=== PATIENT | female | born 1975 | race Caucasian/White ===

== ENCOUNTER 2022-04-16 13:11 | Outpatient (CLI) | payer MEDICAID, SELFPAY | END 2022-04-16 13:12 | disposition home or self-care (01) | PROVIDERS: Visit Provider Emergency Medicine Emergency Medical Services | DX: S89.91XA Unspecified injury of right lower leg, initial encounter (principal); S69.92XA Unspecified injury of left wrist, hand and finger(s), initial encounter; W10.9XXA Fall (on) (from) unspecified stairs and steps, initial encounter; Y92.008 Other place in unspecified non-institutional (private) residence as the place of occurrence of the external cause | CPT/HCPCS: A0425; A0429 ==

== ENCOUNTER 2022-04-16 14:24 | Emergency (ER) | payer MEDICAID, SELFPAY ==
[2022-04-16] VITALS (8 sets, daily range): BP systolic 110–126; BP diastolic 40–82; PULSE 78–85; RESP 18–20; TEMP 37.4; O2SAT 97–98; BMI 25.8
--- NOTE | 2022-04-16 14:33 | CRLHL7_ITS ---
For Patients: As a result of the Cures Act, medical imaging exams and procedure reports are released immediately into your electronic medical record. You may view this report before your referring provider. If you have questions, please contact your health care provider. INDICATION: Trauma. TECHNIQUE: CT cervical spine without contrast. COMPARISON: None. FINDINGS: Vertebrae: Alignment is normal. There are no fractures or suspicious bony lesions. Discs and facet joints: Degenerative disc spondylosis present at C5-6. Disc spaces and facets are otherwise within normal limits. Extraspinal findings: Prevertebral soft tissues, visualized airway, and visualized lungs are unremarkable. IMPRESSION: No sign of acute injury in the cervical spine. Please note that all CT scans at this facility use dose modulation, iterative reconstruction, and/or weight-based dosing when appropriate to reduce radiation dose to as low as reasonably achievable. Dictated by Luis Jasso MD @ 04/16/2022 3:27:56 PM (Electronically Signed)
--- NOTE | 2022-04-16 14:33 | CRLHL7_ITS ---
For Patients: As a result of the Century Cures Act, medical imaging exams and procedure reports are released immediately into your electronic medical record. You may view this report before your referring provider. If you have questions, please contact your health care provider. INDICATION: Trauma. TECHNIQUE: CT head without contrast. COMPARISON: None. FINDINGS: CSF spaces: Within normal limits for age. Brain parenchyma and extra-axial spaces: The pelaez-white differentiation is normal. No sign of mass, hemorrhage, or midline shift. No extra-axial fluid collection. Skull base and calvarium: The visualized paranasal sinuses and mastoid air cells demonstrate no acute or significant findings. The visualized orbits are grossly unremarkable. No skull fractures. IMPRESSION: Unremarkable noncontrast head CT. Please note that all CT scans at this facility use dose modulation, iterative reconstruction, and/or weight-based dosing when appropriate to reduce radiation dose to as low as reasonably achievable. Dictated by Luis Jasso MD @ 04/16/2022 3:21:19 PM (Electronically Signed)
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
[2022-04-16 14:52] LABS: Basophils Absolute Auto 0.05 K/uL (0.00-0.30); Basophils Percent Auto 0.5 % (0.0-3.0); Eosinophils Absolute Auto 0.01 K/uL (0.00-0.50); Eosinophils Percent Auto 0.1 % (0.0-7.0); Immature Granulocytes Abs Auto 0.02 K/uL (0.00-0.30); Lymphocytes Absolute Auto 2.51 K/uL (0.90-2.90); Lymphocytes Percent Auto 26.1 % (20-44); Mean Corpuscular HGB Conc 35 gm/dL (32-36); Mean Corpuscular Hemoglobin 30 pg (26-34); Mean Corpuscular Volume 87 fL (80-100); Monocytes Percent Auto 9.3 % (0.0-11.0); Neutrophils Absolute Auto 6.14 K/uL (1.7-7.0); Neutrophils Percent Auto 63.8 % (42.0-72.0); Platelet Count* 292 K/uL (140-440); Red Blood Count 4.61 m/uL (4.00-5.20); White Blood Count* 9.62 K/uL (4.50-11.00)
[2022-04-16 14:57] LABS: Slide Review Reflex No
--- NOTE | 2022-04-16 15:06 | ED.NURSE ---
Pt to and back from CT
[2022-04-16 15:41] LABS: Chloride* 103 mmol/L (96-114)
[2022-04-16 15:42] LABS: Albumin* 4.6 g/dL (3.3-5.0); Potassium* 3.5 mmol/L (3.6-5.1); Sodium* 144 mmol/L (135-149)
[2022-04-16 15:45] LABS: Alkaline Phosphatase* 119 U/L (40-150); Aspartate Amino Transferase* 97 U/L (12-35); Bilirubin Direct* 0.2 mg/dL (0.0-0.5); Bilirubin Total* 0.4 mg/dL (0.1-1.5); Blood Urea Nitrogen* 12 mg/dL (5-24); Carbon Dioxide* 25 mmol/L (20-32); Creatinine* 0.6 mg/dL (0.5-1.5); Estimated Glomerular Filt Rate 113 ml/min; Glucose* 131 mg/dL (60-115)
[2022-04-16 15:46] LABS: Alanine Aminotransferase* 33 U/L (4-35); Calcium* 8.9 mg/dL (8.4-10.6)
[2022-04-16 15:58] LABS: Ethanol* 0.33 % (0.01-0.03)
== END 2022-04-16 16:24 | disposition home or self-care (01) ==
LOC: ED 16:12
PROVIDERS: Emergency Provider Emergency Medicine Emergency Medical Services
DX: S81.011A Laceration without foreign body, right knee, initial encounter (principal); W10.9XXA Fall (on) (from) unspecified stairs and steps, initial encounter; R55 Syncope and collapse
CPT/HCPCS: 12004; 36415; 70450; 72125; 80048; 80076; 82077; 85025; 99285; 99291; G0390

== ENCOUNTER 2022-04-22 18:05 | Emergency (ER) | payer MEDICAID, SELFPAY ==
[2022-04-22 18:20] VITALS: BP 134/92; PULSE 75; RESP 18; TEMP 36.8; O2SAT 100; BMI 27.4
--- NOTE | 2022-04-22 18:50 | ED.GENADULT ---
HPI - General Adult General Time Seen by Provider: 18:50 Date Seen: 04/22/22 Chief complaint: Skin/Abscess/Foreign Body Stated complaint: Infected stitches Time Seen by Provider: 04/22/22 18:39 Source: patient and RN notes reviewed Mode of arrival: ambulatory Limitations: no limitations History of Present Illness HPI narrative: Patient is ambulatory into the ER with concern of an infected laceration. The wound has gotten a little bit more red and swollen, patient can not say that it is more painful. What became concerning is that it started draining. Unclear as to how long it has been draining. She denies any fevers or chills. She denies any night sweats. This wound overlying her right knee was closed here in our ER on April 16. It was a long laceration, have read the ED note. Sounds as if it was copiously irrigated but the wound was probably about 14 hours old. It was gaping and was opening with movement per her report. Reviewed with her that if it had not been closed, would of been very difficult for this to heal. She also notes that she is noticed bruising and swelling at the end of her left 5th finger. She did not noted initially when she was in the ER for evaluation but has subsequently noted it. She has not had it evaluated or x-rayed. She denies any history of MRSA or any knowledge of any difficult to treat infections before. She has no pain within the knee itself with ambulation. The discomfort of the wound is superficial. Related Data Home Medications Medication Instructions Recorded Confirmed cyanocobalamin (vitamin B-12) 1,000 mcg subcut Q2W 04/16/22 04/16/22 1,000 mcg/mL injection solution ferrous sulfate 325 mg (65 mg 325 mg PO DAILY 04/16/22 04/16/22 iron) tablet (FeroSul) folic acid 1 mg tablet 1 mg PO DAILY 04/16/22 04/16/22 omeprazole 20 mg capsule,delayed 20 mg PO DAILY 04/16/22 04/16/22 release sertraline 100 mg tablet 100 mg PO Q24H 04/16/22 04/16/22 Allergies Allergy/AdvReac Type Severity Reaction Status Date / Time No Known Drug Allergies Allergy Verified 04/16/22 14:40 Review of Systems Status of ROS: Reports: 6 or more systems reviewed and unremarkable except as noted in History and below PFSH PFSH Social History Smoking Status: Never smoker Do you use any of these nicotine containing products: None Second hand tobacco smoke exposure: No How often do you have a drink containing alcohol: 2-4 times a month How many standard drinks containing alcohol do you have on a typical day: 10 or more How often do you have six or more drinks on one occasion: Weekly AUDIT-C Alcohol total score: 9 Non-prescribed substance use: denies use Exam Const: Vital Signs, click to edit/add: Vital Signs - 24 hr 04/22/22 18:20 04/22/22 20:05 04/22/22 19:40 Temperature 98.2 F Pulse Rate [Right Pulse Oximeter] 75 75 Respiratory Rate 18 Blood Pressure [Ri ght Upper Arm] 134/92 H 120/89 129/80 Pulse Oximetry 100 100 Oxygen Delivery Me thod Room Air Room Air Documenting provider has reviewed patient's vital signs: yes Common normals: no apparent distress, average body habitus, oriented x3, no limitations, healthy appearing, alert and well nourished HENMT: Common normals: normocephalic, head/scalp atraumatic, hearing grossly normal bilaterally and external ears normal Head and scalp: normocephalic and atraumatic External ear: external ears normal Eye: Common normals: PERRL, EOMs intact bilaterally, conjunctivae normal and no scleral icterus Conjunctiva: conjunctiva(e) normal Pupil: PERRL Neck & C-Spine: Common normals: full ROM, no lymphadenopathy, supple, no meningeal signs, no JVD and thyroid normal Thyroid: thyroid normal Resp: Common normals: normal respiratory effort, no retractions, no use of accessory muscles and clear to auscultation bilaterally Auscultation: clear to auscultation bilaterally Cardio: Common normals: no JVD, regular rate, regular rhythm, S1 normal heart sound, S2 normal heart sound, no gallops, no clicks and no murmurs Rate: regular rate Rhythm: regular rhythm Heart sounds: S1 normal and S2 normal Extremity: Other: She has a horizontal laceration below the joint line overlying the inferior right knee area. There is some erythema and induration. Along the medial edge of this wound I can express a little serosanguineous cloudy looking fluid. I cannot palpate any underlying collections of fluid or fluctuant areas. I was able to milk just a small amount out. I did culture this. I will be removing 1 suture to allow for better drainage but will leave the rest intact so that this wound has a chance of healing primarily. Her left 5th pinky finger has ecchymosis and swelling distally, has normal sensation, may have a little angulation distally but she does seem to be able to fully flex and extend. She states it is painful in the area of the bruising and it is quite swollen distally. Neuro: Common normals: oriented x3 Sensorium/orientation: alert Meningeal signs: no meningeal signs Course Course Hospital Course: Patient will have an IV established, will get 2 g Ancef. Will get a baseline CBC and C reactive protein in case this needs to be followed for wound management. I will remove 1 suture to allow all a tract for drainage. Culture will be ordered. We will x-ray her left 5th finger. She is in agreement with this plan. Reevaluation(s) Reevaluation #1: Have reviewed with patient and showed her pictures of her finger fracture. I did place a splint on this finger. Reviewed with her that it needs to be splinted in full extension. I removed 1 stitch at this time to try to get small area of opening along the suture line. There is a little drop of slightly cloudy serosanguineous drainage. I could not get further drainage out of this wound this small area did mildly open up, reviewed with her that I fear the full wound would open up before we took all the stitches out. She is getting her Ancef infused. I have reviewed with her that I think she should follow up with 1 of our general surgeons to help actively manage this wound and decide on when stitches should be taken out. Time: 20:22 Consultations Consultation #1: Just completed discussion of the distal comminuted phalanx fracture of this patient's finger with Orthopedics. Spoke with Fabienne ammonia refrigeration technician. We will splint this in full extension, have her follow up with Orthopedics. Reviewed that this is a week old. Time: 20:03 Vital Signs Vital signs: Initial Vital Signs Temperature 98.2 F 04/22/22 18:20 Temperature Source Temporal Artery Scan 04/22/22 18:20 Pulse Rate 75 04/22/22 18:20 Respiratory Rate 18 04/22/22 18:20 Blood Pressure 134/92 H 04/22/22 18:20 Blood Pressure Mean 106 04/22/22 18:20 Blood Pressure Position Sitting 04/22/22 18:20 Pulse Oximetry 100 04/22/22 18:20 Oxygen Delivery Method 04/22/22 18:20 Vital Signs Temperature 98.2 F 04/22/22 18:20 Pulse Rate 75 04/22/22 18:20 Respiratory Rate 18 04/22/22 18:20 Blood Pressure 134/92 H 04/22/22 18:20 Pulse Oximetry 100 04/22/22 18:20 Oxygen Delivery Method 04/22/22 18:20 Temperature 98.2 F 04/22/22 18:20 Pulse Rate 72 04/22/22 20:30 Respiratory Rate 18 04/22/22 18:20 Blood Pressure 122/66 04/22/22 20:30 Pulse Oximetry 100 04/22/22 20:30 Oxygen Delivery Method 04/22/22 20:30 Medical Decision Making Lab Data Lab results reviewed: Yes I reviewed the patient's lab results Labs: Lab Results 04/22/22 04/22/22 Range/Units 19:10 19:10 WBC 8.21 (4.50-11.00) K/uL RBC 4.19 (4.00-5.20) m/uL Hgb 12.6 (12.0-16.0) gm/dL Hct 37.9 (33.0-51.0) % MCV 91 (80-100) fL MCH 30 (26-34) pg MCHC 33 (32-36) gm/dL RDW Coeff of Dmitri 12.1 (11.5-15.5) % Plt Count 278 (140-440) K/uL Neut % (Auto) 65.2 (42.0-72.0) % Lymph % (Auto) 23.0 (20-44) % [place] % (Auto) 9.9 (0.0-11.0) % Eos % (Auto) 0.7 (0.0-7.0) % Baso % (Auto) 0.6 (0.0-3.0) % Neut # (Auto) 5.35 (1.7-7.0) K/uL Lymph # (Auto) 1.89 (0.90-2.90) K/uL [place] # (Auto) 0.80 (0.00-0.90) K/UL Eos # (Auto) 0.06 (0.00-0.50) K/uL Baso # (Auto) 0.05 (0.00-0.30) K/uL Abs Immat Gran (auto) 0.05 (0.00-0.30) K/uL C-Reactive Protein 1.7 H (0.5-1.0) mg/dL Imaging Data Finger x-ray left 5th: Attestation: I have reviewed the pertinent imaging results. Radiologist's impression: Patient: AD STEWART Facility:?[facility] Patient ID:?[id number] Site Patient ID:?[id number]. Site :?[id number] Study:?XRay Extremity Left 5TH FINGER DIGIT-04/22/2022 7:28:49 PM Ordering Physician:?Luke Walker Final Report: Indication: Pain. Fall. Technique: Three views left 5th finger. Comparison: None. Findings: There is a comminuted displaced intra-articular fracture in the base of the 5th distal phalanx. There is no other fracture is seen or dislocation. Impression: Comminuted displaced intra-articular fracture base of the 5th distal phalanx Dictated by Cal Guardado MD @ 04/22/2022 7:53:47 PM (Electronic Signature) Critical Care Time Critical Care Time Critical Care Time: No Discharge Plan Discharge Clinical Impression: Infected laceration, Fracture of distal phalanx of finger of left hand Condition: Stable Instructions: Finger Fracture (ED), Wound Infection (ED) Additional Instructions: For the infected laceration, use bandages as needed for drainage. Do recommend elevating and using warm packs on this. Start oral antibiotic in the morning and take as prescribed. Contact the surgery clinic to get scheduled for a wound followup and have them manage this wound from here on out, phone number is [phone]. If you feel this is worsening, such as increasing redness, swelling, associated fever, difficulty walking, do need to be re-evaluated. For your finger fracture, need to leave the splint on and keep the finger splinted in full extension, meaning is straight. Call the orthopedic clinic at [phone]. Prescriptions: No Action sertraline 100 mg tablet 100 mg PO Q24H Label Comments: TAKE ONE TABLET BY MOUTH ONE TIME DAILY omeprazole 20 mg capsule,delayed release(DR/EC) 20 mg PO DAILY Label Comments: TAKE ONE CAPSULE BY MOUTH ONE TIME DAILY folic acid 1 mg tablet 1 mg PO DAILY Label Comments: TAKE ONE TABLET BY MOUTH ONE TIME DAILY ferrous sulfate [FeroSul] 325 mg (65 mg iron) tablet 325 mg PO DAILY Label Comments: TAKE ONE TABLET BY MOUTH ONE TIME DAILY WITH A MEAL. cyanocobalamin (vitamin B-12) 1,000 mcg/mL solution 1,000 mcg subcut Q2W Label Comments: Inject 1 mL (1,000 mcg total) under the skin every 14 days Follow Up/Referrals: Provider,Not a Local [Primary Care Provider] - Stand Alone Forms: [facility] Info Instructions
--- NOTE | 2022-04-22 18:57 | CRLHL7_ITS ---
For Patients: As a result of the Cures Act, medical imaging exams and procedure reports are released immediately into your electronic medical record. You may view this report before your referring provider. If you have questions, please contact your health care provider. Indication: Pain. Fall. Technique: Three views left 5th finger. Comparison: None. Findings: There is a comminuted displaced intra-articular fracture in the base of the 5th distal phalanx. There is no other fracture is seen or dislocation. Impression: Comminuted displaced intra-articular fracture base of the 5th distal phalanx Dictated by Cal Guardado MD @ 04/22/2022 7:53:47 PM (Electronically Signed)
[2022-04-22 19:38] LABS: Basophils Absolute Auto 0.05 K/uL (0.00-0.30); Basophils Percent Auto 0.6 % (0.0-3.0); Eosinophils Absolute Auto 0.06 K/uL (0.00-0.50); Eosinophils Percent Auto 0.7 % (0.0-7.0); Hematocrit 37.9 % (33.0-51.0); Hemoglobin* 12.6 gm/dL (12.0-16.0); Immature Granulocytes Abs Auto 0.05 K/uL (0.00-0.30); Lymphocytes Absolute Auto 1.89 K/uL (0.90-2.90); Mean Corpuscular HGB Conc 33 gm/dL (32-36); Mean Corpuscular Hemoglobin 30 pg (26-34); Mean Corpuscular Volume 91 fL (80-100); Monocytes Percent Auto 9.9 % (0.0-11.0); Neutrophils Absolute Auto 5.35 K/uL (1.7-7.0); Neutrophils Percent Auto 65.2 % (42.0-72.0); Platelet Count* 278 K/uL (140-440); RDW Coefficient of Variation % 12.1 % (11.5-15.5); Red Blood Count 4.19 m/uL (4.00-5.20); White Blood Count* 8.21 K/uL (4.50-11.00)
[2022-04-22 19:40] VITALS: BP 129/80
[2022-04-22 19:41] LABS: Slide Review Reflex No
[2022-04-22] MEDS: CEFAZOLIN 2 GM in 0.9 % SODIUM CHLORIDE Mini-bag 100 ML IVPB (19:57)
[2022-04-22 20:00] LABS: C Reactive Protein* 1.7 mg/dL (0.5-1.0)
[2022-04-22 20:05] VITALS: BP 120/89; PULSE 75; O2SAT 100
--- NOTE | 2022-04-22 20:26 | ED.NURSE ---
Wound on R knee bandaged with telfa and kerlix gauze wrap.
[2022-04-22 20:30] VITALS: BP 122/66; PULSE 72; O2SAT 100
== END 2022-04-22 20:48 | disposition home or self-care (01) ==
PROVIDERS: Emergency Provider Family Medicine
DX: S62.667A Nondisplaced fracture of distal phalanx of left little finger, initial encounter for closed fracture (principal); W19.XXXA Unspecified fall, initial encounter; L08.9 Local infection of the skin and subcutaneous tissue, unspecified
CPT/HCPCS: 29130; 36415; 73140; 85025; 86140; 87070; 87186; 96365; 99283; 99284; 99285; J0690